=== PATIENT | female | born 1965 | race African-American/Black ===

== ENCOUNTER 2017-06-12 09:18 | Emergency (ER) | payer MEDICAID, OTHER ==
[~2017-06-12] VITALS: Ht 167.6 cm; Wt 95.0 kg
[~2017-06-12 09:18] MED LIST: ALBU17AE26; BENA10TA; HYDR25TA
[2017-06-12] MEDS ORDERED: IBUPROFEN 600MG TABLET PO ONE (11:30)
[2017-06-12] MEDS ORDERED: ACETAMINOPHEN 500MG TABLET PO ONE (11:30)
[2017-06-12 12:20] VITALS: BP 168/102
== END 2017-06-12 12:34 | disposition home or self-care (01) ==
LOC: ER 09:39
DX: S82.455A Nondisplaced comminuted fracture of shaft of left fibula, initial encounter for closed fracture (principal); I10 Essential (primary) hypertension; F17.200 Nicotine dependence, unspecified, uncomplicated; E66.01 Morbid (severe) obesity due to excess calories; Z68.33 Body mass index [BMI] 33.0-33.9, adult; W01.0XXA Fall on same level from slipping, tripping and stumbling without subsequent striking against object, initial encounter; Y93.89 Activity, other specified; Y92.018 Other place in single-family (private) house as the place of occurrence of the external cause
CPT/HCPCS: 29505; 73562; 99284